=== PATIENT | female | born 1980 | race African-American/Black ===

== ENCOUNTER → 2019-09-05 10:32 | Outpatient (CLI) | payer MEDICARE, MEDICAID, SELFPAY ==
--- NOTE | ~2019-09-05 | XR_ITS ---
EXAMINATION: XR chest 2V EXAM DATE: 09/05/2019 10:53 INDICATION: Cough for 2 months. TECHNIQUE: Frontal and lateral projections of the chest obtained and reviewed. There is no prior ewelina dy for comparison. FINDINGS: The lungs are clear. There are no pleural effusions. The cardiomediastinal silhouette is within normal limits. There is no pneumothorax suspected. The bones and soft tissues are unremarkab le. IMPRESSION: No acute cardiopulmonary findings. Reviewed, dictated and finalized at location B. O SPECIALIST
== END ==
PROVIDERS: PCP Emergency Medicine; Visit Provider Emergency Medicine
DX: R05 Cough (principal)
CPT/HCPCS: 71046

== ENCOUNTER → 2019-11-23 14:44 | Outpatient (CLI) | payer MEDICARE, MEDICAID, SELFPAY ==
--- NOTE | ~2019-11-23 | XR_ITS ---
EXAMINATION: XR chest 2V DATE: 11/23/2019 14:58 INDICATION: Cough TECHNIQUE: PA and lateral views of the chest are obtained. COMPARISON: None available FINDINGS: The lungs are free of acute opacities. There is no pleural effusion or pneumothorax. The ca rdiomediastinal silhouette is normal. The visualized bones and soft tissues are unremarkable. IMPRESSION: 1. No acute cardiopulmonary abnormality. Reviewed, dictated and finalized at location A.
== END ==
PROVIDERS: PCP Emergency Medicine; Visit Provider Emergency Medicine
DX: R05 Cough (principal)
CPT/HCPCS: 71046

== ENCOUNTER → 2019-12-28 11:07 | Outpatient (CLI) | payer MEDICARE, MEDICAID, SELFPAY ==
--- NOTE | ~2019-12-28 | XR_ITS ---
XR chest 2V DATE: 12/28/2019 11:33 INDICATION: Shortness of breath. Exacerbation of asthma. Nonsmoker. TECHNIQUE: 2 views COMPARISON: 11/23/2019 2 view chest FINDINGS: Normal heart size. No hilar or mediastinal enlargement. The lungs are normally inflated. No pulmonary infiltrate or consolidation, pleural effusion or pulmonary vascular congestion or pneumoth orax. There is degenerative spurring and minimal scoliosis of the thoracic spine. IMPRESSION: No active cardiopulmonary disease Reviewed, dictated and finalized at location A.
== END ==
PROVIDERS: PCP Emergency Medicine; Visit Provider Emergency Medicine
DX: J45.901 Unspecified asthma with (acute) exacerbation (principal)
CPT/HCPCS: 71046

== ENCOUNTER 2020-04-17 12:00 | Emergency (ER) | payer MEDICARE, MEDICAID, SELFPAY ==
[2020-04-17 12:41] VITALS: BP 108/88; PULSE 104; RESP 16; TEMP 37.1; O2SAT 98
--- NOTE | 2020-04-17 13:05 | ED.URI ---
HPI - URI/Sore Throat General Chief Complaint: Upper Respiratory Infection Stated Complaint: SOB/DIFFICULTY BREATHING Time Seen by Provider: 04/17/20 13:00 Source: patient and RN notes reviewed Mode of arrival: ambulatory Limitations: no limitations History of Present Illness HPI Narrative: 39-year-old female presents with concern for cough, shortness of breath, wheezing. Reports symptoms started 2 days ago. Reports sore throat, bilateral ear pain. Reports she has an albuterol inhaler, has not used it. Reports general malaise, has not taken her temperature. MD elicited complaint: cough Related Data Home Medications Medication Instructions Recorded Confirmed budesonide-formoterol [Symbicort] 2 puff INHALATION Q12H 04/17/20 04/17/20 glipizide 5 mg PO DAILY 04/17/20 04/17/20 lisinopril 5 mg PO DAILY 04/17/20 04/17/20 metformin 500 mg PO BID 04/17/20 04/17/20 Allergies Allergy/AdvReac Type Severity Reaction Status Date / Time No Known Allergies Allergy Verified 04/17/20 12:58 Review of Systems Review of Systems: Narrative: CONSTITUTIONAL: Denies malaise, chills, sweats, or fever. EYES: Denies visual changes, redness, or discharge. ENT: Reports rhinorrhea, congestion, otalgia or sore throat. CARDIOVASCULAR: Denies chest pain, palpitations, or edema. RESPIRATORY: Reports cough, dyspnea. GASTROINTESTINAL: Denies abdominal pain, nausea, vomiting, diarrhea, bloody, or mucous stools. MUSCULOSKELETAL: Denies myalgia. NEUROLOGIC: Denies headache. All systems reviewed & are unremarkable except as noted in HPI and below PMFSH Social History Social History Smoking status: Never smoker Alcohol intake: current Comments At time of signature, agree with nursing past medical, surgical, social and family history. There is no relevant family history pertinent to the presenting complaint Exam Narrative: Exam Narrative: GENERAL: Well-appearing, well-nourished, and in no acute distress. HEAD: Normocephalic EYES: PERRLA, conjunctivae clear ENT: Nares clear, turbinates edematous and erythematous, clear discharge. Mucous membranes moist. TM pearly carpio with dull light reflex bilaterally; no tragal tenderness. Oropharynx not erythematous without lesions. Tonsils not enlarged and without exudate, no drooling, no hoarseness, no trismus, uvula midline. NECK: Supple. No lymphadenopathy CHEST: Scattered inspiratory and expiratory wheeze. Breath sounds equal. No rhonchi, rales, or stridor. No respiratory distress, speaks in full sentences. HEART: Regular rate and rhythm. No murmur heard. SKIN: Warm, dry, no rash. NEURO: Alert and oriented x3. PSYCH: Normal mood and affect Course Course Emergency Course: Patient is aware of diagnosis, understands and agrees to treatment plan. Anticipatory guidance given. Patient agrees to follow-up as directed and is aware of reasons to seek care at the emergency department. Portions of this record may have been created with voice recognition software Vital Signs Vital signs: Vital Signs Temperature 98.7 F 04/17/20 12:41 Pulse Rate 104 H 04/17/20 12:41 Respiratory Rate 16 04/17/20 12:41 Blood Pressure 108/88 04/17/20 12:41 Pulse Oximetry 98 04/17/20 12:41 Temperature 98.7 F 04/17/20 12:41 Pulse Rate 104 H 04/17/20 12:41 Respiratory Rate 16 04/17/20 12:41 Blood Pressure 108/88 04/17/20 12:41 Pulse Oximetry 98 04/17/20 12:41 Reviewed. MDM - URI/Sore Throat MDM Narrative Medical decision making narrative: Differential diagnosis considered: Yan virus, strep pharyngitis, allergic rhinitis, upper respiratory tract infection, sinusitis, rhinosinusitis, nasopharyngitis. viral pharyngitis, otitis media, otitis externa, pneumonia, bronchitis, viral cough syndrome, viral syndrome, and influenza. Exam findings show no acute concerns or changes; patient is non-toxic appearing and is in no distress. Patient is appropriate for outpatient treatment and follow-up. Crit
== END 2020-04-17 13:27 | disposition home or self-care (01) ==
PROVIDERS: Emergency Provider Nurse Practitioner; PCP Emergency Medicine
DX: R06.9 Unspecified abnormalities of breathing (principal); R05 Cough; R06.2 Wheezing; Z20.828 Contact with and (suspected) exposure to other viral communicable diseases; E11.9 Type 2 diabetes mellitus without complications
CPT/HCPCS: 99213; G0463

== ENCOUNTER 2020-06-04 19:47 | Emergency (ER) | payer MEDICARE, MEDICAID, SELFPAY ==
[2020-06-04 19:57] VITALS: BP 107/74; PULSE 167; RESP 20; TEMP 37.2; O2SAT 95
[2020-06-04 20:04] VITALS: PULSE 138; RESP 20; O2SAT 95
--- NOTE | 2020-06-04 20:04 | ED.SOB ---
HPI - SOB/Dyspnea General Chief Complaint: Shortness of Breath/Dyspnea Stated Complaint: Short of Breath Source: patient and RN notes reviewed Limitations: no limitations History of Present Illness HPI Narrative: The patient- a non-smoker/nondrinker with RAD, HTN. AODM- presents with cough. Patient presents on this rainy night with a day long history of cough and shortness of breath with wheezing. No fever, loss of taste or smell, CP, sputum changes, N/V/D; symptoms are moderate unimproved with her albuterol. She has been [financially?] noncompliant/out of some meds like symbicort; August was last hospitalization, and steroid use. Last documented updraft and visit was in late summer; Vital signs remarkable for sat 95, pulse 167 while coughing. Patient advised that nebulizer will be given at doorway, outdoors for infection control purposes- and she agrees. Related Data Home Medications Medication Instructions Recorded Confirmed budesonide-formoterol [Symbicort] 2 puff INHALATION Q12H 04/17/20 06/04/20 glipizide 5 mg PO DAILY 04/17/20 06/04/20 lisinopril 5 mg PO DAILY 04/17/20 06/04/20 metformin 500 mg PO BID 04/17/20 06/04/20 albuterol sulfate 2 inh INHALATION DIRECTED 06/04/20 06/04/20 fluticasone propionate 50 mcg INTRANASAL DIRECTED 06/04/20 06/04/20 omeprazole 20 mg PO DAILY 06/04/20 06/04/20 Allergies Allergy/AdvReac Type Severity Reaction Status Date / Time No Known Allergies Allergy Verified 06/04/20 19:48 Review of Systems Review of Systems: Narrative: General/Constitutional: No weight loss,fever Eyes: N0: Redness,discharge Ears/Nose/Throat: No: Epistaxis,ear discharge Respiratory: Denies: Hemoptysis Gastrointestinal: No Vomiting, Bleeding-rectal Skin: No Lumps, eruption Neurologic: No Focal Weakness,Sz Hematologic: Denies: Petechiae/Purpura Psychiatric: No: Suicida ideationl All Other Systems: Reviewed and Negative [facility] Social History Social History Smoking status: Never smoker Alcohol intake: current Comments At time of signature, agree with nursing past medical, surgical, social and family history. There is no relevant family history pertinent to the presenting complaint Exam Narrative: Exam Narrative: General Appearance: Well nourished , coughing EYE: PERRLA, Conjunctiva clear Ears: External ear normal Nose: Normal nose Mouth/Throat: Normal appearing, Normal lips Neck: Supple Respiratory: Airway patent, bilateral wheezing Cardiovascular: RRR, tachy Musculoskeletal: Full ROM Skin: Warm, Dry Neurological: A&O x3, CN II-X intact Psychiatric: Normal mood, Normal affect Course Course Emergency Course: Definitely improved after single treatment including heart rate, saturation, work of breathing Vital Signs Vital signs: Vital Signs Temperature 99.0 F 06/04/20 19:57 Pulse Rate 167 H 06/04/20 19:57 Respiratory Rate 20 06/04/20 19:57 Blood Pressure 107/74 06/04/20 19:57 Pulse Oximetry 95 06/04/20 19:57 Temperature 99.0 F 06/04/20 19:57 Pulse Rate 107 H 06/04/20 20:35 Respiratory Rate 21 H 06/04/20 20:35 Blood Pressure 107/74 06/04/20 19:57 Pulse Oximetry 97 06/04/20 20:35 Discharge Plan Discharge Clinical Impression: Asthma with exacerbation Qualifiers: Asthma severity: moderate Asthma persistence: unspecified Qualified Code(s): J45.901 - Unspecified asthma with (acute) exacerbation Patient Disposition: Home, Self-Care Condition: Improved Instructions: Antibiotic Form, Asthma (ED) Prescriptions: New albuterol sulfate 2.5 mg /3 mL (0.083 %) solution for nebulization 2.5 mg inhalation Q4H PRN (Reason: shortness of breath or wheezing) Qty: 15 RF: 0 albuterol sulfate [Ventolin HFA] 90 mcg/actuation HFA aerosol inhaler 2 puff INHALATION QID PRN (Reason: shortness of breath or wheezing) Qty: 8.5 RF: 1 Flovent HFA 220 mcg/actuation HFA aerosol inhaler 1 puff inhalation Q12H Qty: 12 RF: 3 azithro
[2020-06-04] MEDS: IPRATROPIUM BR 0.02% INH SOLN 0.5 MG/2.5 ML VIAL INHALATION (20:05)
[2020-06-04] MEDS: ALBUTEROL SULFATE NEB 2.5 MG/0.5 ML INH INHALATION (20:05)
[2020-06-04 20:30] VITALS: PULSE 109; RESP 28; O2SAT 96
[2020-06-04 20:35] VITALS: PULSE 107; RESP 21; O2SAT 97
--- NOTE | 2020-06-04 20:51 | PC.NURSE ---
pt only had one nebulizer treatment, but documentation twice since lungs improved.
== END 2020-06-04 20:55 | disposition home or self-care (01) ==
PROVIDERS: Emergency Provider Emergency Medicine; PCP Emergency Medicine
DX: J45.901 Unspecified asthma with (acute) exacerbation (principal); I10 Essential (primary) hypertension; K21.9 Gastro-esophageal reflux disease without esophagitis; E11.9 Type 2 diabetes mellitus without complications
CPT/HCPCS: 94640; 96372; 99213; G0463; J1100

== ENCOUNTER 2020-06-05 11:33 | Outpatient (NON) | payer MEDICARE, MEDICAID, SELFPAY ==
[2020-06-05 23:36] LABS: SARS-CoV-2 RNA PCR Negative
== END 2020-06-05 11:34 ==
LOC: ANHCOVIDDT 11:35
PROVIDERS: PCP Emergency Medicine; Visit Provider Emergency Medicine
DX: Z20.828 Contact with and (suspected) exposure to other viral communicable diseases (principal); J45.901 Unspecified asthma with (acute) exacerbation
CPT/HCPCS: 87635; C9803; U0003

== ENCOUNTER → 2020-10-15 00:37 | Outpatient (CLI) | payer MEDICARE, MEDICAID, SELFPAY ==
[2020-10-15 18:02] LABS: SARS-CoV-2 RNA PCR Negative
== END ==
PROVIDERS: PCP Emergency Medicine; Visit Provider Internal Medicine Critical Care Medicine
DX: Z01.812 Encounter for preprocedural laboratory examination (principal); Z20.822 Contact with and (suspected) exposure to COVID-19
CPT/HCPCS: C9803; U0003; U0005

== ENCOUNTER 2020-10-17 09:00 | Outpatient (CLI) | payer MEDICARE, MEDICAID, SELFPAY ==
--- NOTE | 2020-11-05 14:10 | WPDSLEEPSTUD ---
Sleep Study Ordering Provider: Brian Sarkar MD; gis software developer is Dr. Rocio Landa [facility] Interpreting Physician: Koki Drew MD Sleep Study Type: CPAP Titration Height: 1.5 m Weight: 77.111 kg Body Mass Index: 34.3 Neck Circumference (inches): 14.5 Marlin: 12 Reason for Sleep Study Home sleep test using WatchPat September 20, 2020 showing moderate obstructive sleep apnea AHI 15.7, lowest saturation 85% now here for a CPAP titration Sleep History Yasmin Appiah is a 40 year old female with constant trouble sleeping when she has a cold. She does not wake up gasping for breath at night, does not have breathing problems at night observed by others, does not sweat excessively at night or notice her heart pounding or beating irregularly night. She rarely falls asleep during the day, never involuntarily, never while driving. She does not have loss of muscle tone with strong emotion. She rarely has daytime difficulties due to excessive sleepiness. She does not feel paralyzed on waking or falling asleep and does not have vivid dreamlike scenes upon awakening or falling asleep. She rarely feels afraid to go to sleep. She occasionally has nightmares. She does not remember her dreams. She does not have racing thoughts, feelings of sadness, depression, anxiety. She does not have muscular tension or notice parts of her body jerking. She does not kick at night. She does not have crawling or aching feelings in her legs. She does not have morning jaw pain. Her normal bedtime is not given, although she indicates that she goes to bed late. It does not take long for her to fall asleep. She does wake multiple times throughout the night to go urinate. When awake, she stays awake for about an hour. She wakes in the morning between 7:00 a.m. and 8:00 a.m.. She is not sure how many hours of sleep she gets at night. [facility] Past Medical History Medical History (Updated 11/05/20 @ 14:25 by Koki Drew MD) COPD (chronic obstructive pulmonary disease) Diabetes mellitus GERD (gastroesophageal reflux disease) Obstructive sleep apnea Palpitations Snoring Surgical History Surgical History (Updated 11/05/20 @ 14:23 by Koki Drew MD) Status post appendectomy 2001 Family History Family History (Updated 11/05/20 @ 14:24 by Koki Drew MD) Other Cancer Diabetes mellitus Social History Social History Smoking status: Never smoker Alcohol intake: current Medications Home Medications Medication Instructions Recorded Confirmed Type budesonide-formoterol [Symbicort] 2 puff INHALATION Q12H 04/17/20 06/04/20 History glipizide 5 mg PO DAILY 04/17/20 06/04/20 History lisinopril 5 mg PO DAILY 04/17/20 06/04/20 History metformin 500 mg PO BID 04/17/20 06/04/20 History albuterol sulfate 2 inh INHALATION DIRECTED 06/04/20 06/04/20 History albuterol sulfate 2.5 mg INHALATION Q4H PRN #15 ml 06/04/20 Rx albuterol sulfate [Ventolin HFA] 2 puff INHALATION QID PRN #8.5 gm 06/04/20 Rx azithromycin See Rx Instructions .ROUTE 06/04/20 Rx .COMPLEX #6 tablet dexamethasone [Decadron] 6 mg PO DAILY #3 tablet 06/04/20 Rx fluticasone propionate 50 mcg INTRANASAL DIRECTED 06/04/20 06/04/20 History fluticasone propionate [Flovent 1 puff INHALATION Q12H #12 g 06/04/20 Rx HFA] omeprazole 20 mg PO DAILY 06/04/20 06/04/20 History Sleep Procedure This test was performed using the [employer] multiple channel system including EOG, EEG, submental EMG, EKG, nasal and oral airflow using thermistors and nasal pressure sensors, chest and abdominal belts for body position data, and pulse oximetry. Video monitoring was also performed. The study was scored using CMS guidelines. The patient was started on CPAP a small AIrfit F20 full face mask and heated humidifier. CPAP was gradually increased for snores, with a final pressure of 11 cm water pressure with 2 cm of EPR. At this setting, the patient
[2020-11-05 14:31] VITALS: BMI 34.3
== END 2020-10-17 09:01 | disposition home or self-care (01) ==
LOC: ANHCSM 09:01
PROVIDERS: PCP Emergency Medicine; Visit Provider Emergency Medicine
DX: G47.33 Obstructive sleep apnea (adult) (pediatric) (principal); J44.9 Chronic obstructive pulmonary disease, unspecified; E11.9 Type 2 diabetes mellitus without complications; K21.9 Gastro-esophageal reflux disease without esophagitis; Z79.899 Other long term (current) drug therapy
CPT/HCPCS: 95811

== ENCOUNTER 2021-01-14 14:19 | Emergency (ER) | payer MEDICARE, MEDICAID, SELFPAY ==
[2021-01-14 14:30] VITALS: BP 113/93; PULSE 134; RESP 16; TEMP 37.7; O2SAT 94
[2021-01-14] MEDS: IPRATROPIUM BR 0.02% INH SOLN 0.5 MG/2.5 ML VIAL INHALATION (15:12)
[2021-01-14] MEDS: predniSONE 20 MG TABLET 60 MG PO (15:12)
[2021-01-14] MEDS: LEVALBUTEROL NEB 1.25 MG/3 ML INHALATION (15:12)
[2021-01-14 15:45] VITALS: PULSE 128; RESP 24; O2SAT 95
--- NOTE | 2021-01-14 16:02 | PC.NURSE ---
Pt ambulated up and down hallway. Sats maintained at 95% with HR 120's. No SOB noted with ambulation.
--- NOTE | 2021-01-14 16:18 | ED.GENADULT ---
HPI - General Adult General Chief complaint: Upper Respiratory Infection Stated complaint: Sore Throat,Congestion Source: patient and RN notes reviewed Limitations: no limitations History of Present Illness HPI narrative: The obese, unvaccinated patient-- who is a non-smoker/nondrinker with RAD-- presents with cough. Patient states she has a shorter 1 day history of cough. Incidentally she comments that she is pending a nasal polyp surgery this midweek, and has been taking prednisone for a week tapered to 10 mg today [last steroids , CXR were about last year, as she was hospitalized] . She reports 1 day history of fever 102, cough, congestion, ear fullness, and slight scratchy throat. No loss of taste/smell, CP, nausea/vomiting, calf pain/ edema; discussed plan to provide nebulizer tx [she has not used], steroid burst, and antibiotics. Patient to inform her doctors of visit and treatment, and return if worsens. Related Data Home Medications Medication Instructions Recorded Confirmed glipizide 5 mg PO DAILY 04/17/20 01/14/21 docusate sodium 100 mg PO BID 01/14/21 01/14/21 [id number]-yrijkaxu 1 inh INHALATION DAILY 01/14/21 01/14/21 [Trelegy Ellipta] metformin 850 mg PO BID 01/14/21 01/14/21 montelukast 10 mg PO DAILY 01/14/21 01/14/21 pantoprazole 40 mg PO DAILY 01/14/21 01/14/21 prednisone 10 mg PO .RX INSTRUCTIONS 01/14/21 01/14/21 Allergies Allergy/AdvReac Type Severity Reaction Status Date / Time No Known Allergies Allergy Verified 01/14/21 14:42 Review of Systems Review of Systems: Narrative: General/Constitutional: No weight loss,REPOrtS fever Eyes: N0: Redness,discharge Ears/Nose/Throat: No: Epistaxis,ear discharge Respiratory: Denies: Hemoptysis Gastrointestinal: No Vomiting, Bleeding-rectal Skin: No Lumps, eruption Neurologic: No Focal Weakness,Sz Hematologic: Denies: Petechiae/Purpura Psychiatric: No: Suicida ideationl All Other Systems: Reviewed and Negative [facility] Past Medical History Medical History (Updated 01/16/21 @ 19:11 by Catalino Weathers MD) COPD (chronic obstructive pulmonary disease) Diabetes mellitus GERD (gastroesophageal reflux disease) Obstructive sleep apnea Palpitations Snoring Surgical History Surgical History (Updated 11/05/20 @ 14:23 by Koki Drew MD) Status post appendectomy 2002 Family History Family History (Updated 11/05/20 @ 14:24 by Koki Drew MD) Other Cancer Diabetes mellitus Social History Social History Smoking status: Never smoker Alcohol intake: current Comments At time of signature, agree with nursing past medical, surgical, social and family history. There is no relevant family history pertinent to the presenting complaint Exam Narrative: Exam Narrative: General Appearance: Well appearing, Obese/ Well nourished EYE: PERRLA, Conjunctiva clear Ears: Auditory canal normal, TM normal Nose: Rhinorrhea, Mucousal erythema Mouth/Throat: MM moist, Uvula midline, Pharyngeal erythema Neck: Supple, No adenopathy Respiratory: Airway patent, No respiratory distress, diffuse decreased BS, rare scattered wheezing Cardiovascular: RRR tachy , No JVD Musculoskeletal: Non tender, Normal strength Skin: Warm, Dry Neurological: A&O x3, CN II-XII intact Psychiatric: Normal mood, Normal affect Course Vital Signs Vital signs: Vital Signs Temperature 99.8 F H 01/14/21 14:30 Pulse Rate 134 H 01/14/21 14:30 Respiratory Rate 16 01/14/21 14:30 Blood Pressure 113/93 H 01/14/21 14:30 Pulse Oximetry 94 01/14/21 14:30 Temperature 99.8 F H 01/14/21 14:30 Pulse Rate 128 H 01/14/21 15:45 Respiratory Rate 24 H 01/14/21 15:45 Blood Pressure 113/93 H 01/14/21 14:30 Pulse Oximetry 95 01/14/21 15:45 Medical Decision Making Vital Signs Vital Signs: Vital Signs Temperature 99.8 F H 01/14/21 14:30 Pulse Rate 134 H 01/14/21 14:30 Respiratory Rate 16 01/14/21 14:30 Blood P
== END 2021-01-14 16:26 | disposition home or self-care (01) ==
PROVIDERS: Emergency Provider Emergency Medicine; PCP Emergency Medicine
DX: J45.31 Mild persistent asthma with (acute) exacerbation (principal); Z20.822 Contact with and (suspected) exposure to COVID-19; J44.9 Chronic obstructive pulmonary disease, unspecified; E11.9 Type 2 diabetes mellitus without complications; K21.9 Gastro-esophageal reflux disease without esophagitis; G47.33 Obstructive sleep apnea (adult) (pediatric)
CPT/HCPCS: 87426; 94640; 99213; C9803; G0463; J7512

== ENCOUNTER → 2021-06-04 11:03 | Outpatient (CLI) | payer MEDICARE, MEDICAID, SELFPAY ==
--- NOTE | ~2021-06-04 | XR_ITS ---
EXAMINATION: XR lumbar spine 2-3V EXAM DATE: 06/04/2021 11:27 INDICATION: Low back pain. TECHNIQUE: Lumber spine frontal, lateral, lateral L5-S1 projections for interpretation. Comparison is made to prior examination from 05/29/2016. FINDINGS: Mild lower lumbar facet arthropathy. There are no acute fractures identified. Alignment ma intained. There are no bony erosions identified. Paraspinal soft tissue is unremarkable. Sacrum, sacr oiliac joints, sacral arcuate lines are intact. IMPRESSION: Mild facet arthropathy. Reviewed, dictated and finalized at location B. IMPRESSION: Mild facet arthropathy.
--- NOTE | ~2021-06-04 | XR_ITS ---
EXAMINATION: XR chest 2V EXAM DATE: 06/04/2021 11:27 INDICATION: Pt W Rt Lung infiltrate, Mid Back Pain. TECHNIQUE: Frontal and lateral projections of the chest obtained and reviewed. Comparison is made to prior examination from 12/28/2019. FINDINGS: The lungs are clear. There are no pleural effusions. The cardiomediastinal silhouette is within normal limits. There is no pneumothorax suspected. The bones and soft tissues are unremarkab le. IMPRESSION: No acute cardiopulmonary findings. Reviewed, dictated and finalized at location B.
--- NOTE | ~2021-06-04 | XR_ITS ---
EXAMINATION: XR thoracic spine 3V EXAM DATE: 06/04/2021 11:27 INDICATION: Mid back pain. TECHNIQUE: Frontal and lateral projections of the thoracic spine as well as lateral swimmers projecti on of the upper thoracic spine for interpretation. There is no prior study for comparison. FINDINGS: Vertebral body and disc heights are well-maintained. Small lower thoracic bridging endplate osteophyt es. Paraspinal soft tissue is unremarkable. There are no bony erosions identified. IMPRESSION: Small lower thoracic osteophytes. Reviewed, dictated and finalized at location B.
== END ==
PROVIDERS: PCP Emergency Medicine; Visit Provider Emergency Medicine
DX: M47.815 Spondylosis without myelopathy or radiculopathy, thoracolumbar region (principal); R91.8 Other nonspecific abnormal finding of lung field
CPT/HCPCS: 71046; 72072; 72100

== ENCOUNTER 2021-06-26 16:19 | Emergency (ER) | payer MEDICARE, MEDICAID, SELFPAY ==
--- NOTE | ~2021-06-26 | XR_ITS ---
EXAMINATION: XR chest 2V DATE: 06/26/2021 16:55 INDICATION: Dyspnea. TECHNIQUE: Frontal and lateral views of the chest were obtained. COMPARISON: Chest 2 views 06/04/2021 FINDINGS: The chest demonstrates clear lungs without pneumonia, pleural effusion, or pneumothorax. Th e heart size is normal. IMPRESSION: 1. No acute cardiopulmonary disease. Reviewed, dictated and finalized at location A. ILE DESIGNER
[2021-06-26 16:20] VITALS: BP 110/75; PULSE 120; PULSE 142; RESP 30; RESP 32; TEMP 36.3; O2SAT 90
[2021-06-26] MEDS: IPRATROPIUM BR 0.02% INH SOLN 0.5 MG/2.5 ML VIAL INHALATION ×2 (16:20→17:25)
[2021-06-26] MEDS: ALBUTEROL SULFATE NEB 2.5 MG/3 ML INH INHALATION ×2 (16:20→17:24)
--- NOTE | 2021-06-26 16:24 | ED.ASTHMA ---
HPI - Asthma General Chief Complaint: Shortness of Breath/Dyspnea Stated Complaint: sob Time Seen by Provider: 06/26/21 16:24 Source: patient Mode of arrival: ambulatory Limitations: no limitations History of Present Illness HPI Narrative: Yasmin Appiah is a 40 yo female with a hx of asthma, diabetes, comes to [facility] with asthma exacerbation. She was seen the last 2 nights in [place] and then in [facility] she was prescribed prednisone but she did not pick it up today. She arrived at clinic she had O2 sat of 90% and respiratory rate of 30, she is currently receiving a DuoNeb Related Data Home Medications Medication Instructions Recorded Confirmed glipizide 5 mg PO DAILY 04/17/20 06/26/21 [id number]-jqusavrer-mcttfdib 1 inh INHALATION DAILY 01/14/21 06/26/21 [Trelegy Ellipta] metformin 850 mg PO BID 01/14/21 06/26/21 montelukast 10 mg PO DAILY 01/14/21 06/26/21 pantoprazole 40 mg PO DAILY 01/14/21 06/26/21 amlodipine 5 mg PO DAILY 06/26/21 06/26/21 ferrous sulfate [FeroSul] 325 mg PO DAILY 06/26/21 06/26/21 sennosides-docusate sodium PO 06/26/21 [Stimulant Laxative Plus] Allergies Allergy/AdvReac Type Severity Reaction Status Date / Time No Known Allergies Allergy Verified 06/26/21 17:12 Review of Systems Review of Systems: CONSTITUTIONAL: Denies fever, chills, sweats. EYES: Denies visual changes, redness, discharge. ENT: Denies rhinorrhea, congestion, sore throat, otalgia. CARDIOVASCULAR: Denies chest pain, palpitations, edema. RESPIRATORY: has dyspnea, wheezing, cough GASTROINTESTINAL: Denies abdominal pain, nausea, vomiting, diarrhea. GENITOURINARY: Denies dysuria, hematuria, abnormal discharge SKIN: Denies rash or itching. NEUROLOGIC: Denies numbness, or focal weakness. PSYCHIATRIC: Denies anxiety or depression. [facility] Past Medical History Medical History COPD (chronic obstructive pulmonary disease) Diabetes mellitus GERD (gastroesophageal reflux disease) Obstructive sleep apnea Palpitations Snoring Surgical History Surgical History Status post appendectomy 2002 Family History Family History Other Cancer Diabetes mellitus Social History Social History Smoking status: Never smoker Alcohol intake: current Comments At time of signature, I agree with nursing past medical, surgical, social and family history. There is no relevant family history pertinent to the presenting complaint. Exam Narrative: GENERAL: This is a well-nourished, well-developed patient, in mild distress. HEAD: normocephalic, atraumatic. EYES: Sclera clear/white. Vision is grossly intact. EARS: External ears normal, . Hearing grossly intact. NOSE: External nose normal without nasal discharge, nares without redness, no rhinorrhea. THROAT: Mucous membranes moist, NECK: Neck supple, non-tender CARDIOVASCULAR: Regular rate and rhythm without murmurs, gallops, or rubs. RESPIRATORY: Tight to auscultation. Breath sounds equal bilaterally but has little air movement. Minimal rhonchi. GASTROINTESTINAL: Abdomen soft, non-tender, SKIN: warm, intact with no suspicious lesions or rash, good texture and turgor. NEURO: awake, alert, and oriented to person, place and time. There were no obvious focal neurologic abnormalities. Steady gait EXTREMITIES: Normal range of motion. BACK: Nontender without deformity Course Course Emergency Course: Patient arrived to [facility] with O2 sats of 90 her respiratory rate of 30 is a recurrent patient here with COPD exacerbation-his third visit in 3 days for this patient for asthma exacerbation Started on DuoNeb treatments-after first treatment still wheezing sounded tight, 80 mg of prednisone given, second DuoNeb started Chest x-tracy was
[2021-06-26] MEDS: predniSONE 20 MG TABLET PO (16:40)
[2021-06-26] MEDS: predniSONE 20 MG TABLET 60 MG PO (16:40)
[2021-06-26 16:50] VITALS: PULSE 117; RESP 32; O2SAT 90
[2021-06-26 17:20] VITALS: PULSE 121; RESP 31; O2SAT 90
[2021-06-26 17:55] VITALS: PULSE 119; RESP 32; O2SAT 91
[2021-06-26 17:59] VITALS: PULSE 103; RESP 26; O2SAT 92
== END 2021-06-26 18:02 | disposition short-term general hospital (02) ==
LOC: EXPCOLL 16:21
PROVIDERS: Emergency Provider Nurse Practitioner; PCP Emergency Medicine
DX: R06.00 Dyspnea, unspecified (principal); J44.1 Chronic obstructive pulmonary disease with (acute) exacerbation; E11.9 Type 2 diabetes mellitus without complications; G47.33 Obstructive sleep apnea (adult) (pediatric)
CPT/HCPCS: 71046; 99215; G0463; J7512

== ENCOUNTER 2021-06-26 18:21 | Emergency (ER) | payer MEDICARE, MEDICAID, SELFPAY ==
[2021-06-26 18:23] VITALS: BP 134/82; PULSE 92; RESP 24; TEMP 36.5; O2SAT 97
--- NOTE | 2021-06-26 18:46 | ECG_ITS ---
Measurements Intervals [place] Rate: 81 P: 54 MO: 156 QRS: 42 QRSD: 78 T: 25 QT: 323 QTc: 376 Interpretive Statements SINUS RHYTHM WITH MARKED SINUS ARRHYTHMIA BORDERLINE ECG Electronically Signed On 06-26-2021 19:54:46 CLINICAL LABORATORY MEDICAL DIRECTOR by Atilio Arana D.O.
[2021-06-26] MEDS: methylPREDNISolone SOD SUCC 125 MG VIAL IV PUSH (18:54)
[2021-06-26] MEDS: SODIUM CHLORIDE 0.9% IV 1,000 ML 150 ML IV CONT (18:54)
[2021-06-26] MEDS: IPRATROPIUM BR 0.02% INH SOLN 0.5 MG/2.5 ML VIAL 1 MG INHALATION (18:59)
[2021-06-26] MEDS: ALBUTEROL SULFATE NEB 2.5 MG/0.5 ML INH 10 MG INHALATION (18:59)
[2021-06-26 19:00] VITALS: PULSE 103; RESP 20
[2021-06-26 19:09] LABS: Basophils Percent Auto 0.1 % (0.2-1.2); Eosinophils Percent Auto 0.2 % (0-4.4); Hematocrit 38.2 % (37.0-47.0); Hemoglobin 11.9 g/dL (12.0-15.0); Immature Granulocyte Absolute 0.04 K/mm3 (0.00-0.031); Immature Granulocyte Percent A 0.3 % (0-0.5); Lymphocytes Absolute Auto 0.93 K/mm3 (0.9-3.2); Lymphocytes Percent Auto 6.7 % (18.3-44.2); Mean Corpuscular HGB Conc 31.2 g/dl (32-36); Mean Corpuscular Hemoglobin 24.4 pg (26-34); Mean Corpuscular Volume 78.4 fl (80-100); Mean Platelet Volume 10.1 fl (7.4-10.4); Monocytes Absolute Auto 0.7 K/mm3 (0.1-0.6); Monocytes Percent Auto 4.9 % (2.6-8.5); Neutrophils Absolute Auto 12.2 K/mm3 (1.3-6.7); Neutrophils Percent Auto 87.8 % (45.5-73.1); Platelet Count Result 419 k/mm3 (150-375); Red Blood Count 4.87 M/mm3 (4.2-5.4); White Blood Count 13.9 K/mm3 (4.5-10.0)
[2021-06-26 19:11] LABS: Add Urine Microscopic? YES; Appearance Urine Cloudy (Clear); Bacteria Urine Trace /hpf; Bilirubin Urine Negative (Negative); Blood Urine Negative (Negative); Color Urine Yellow (Yellow); Glucose Urine UA 3+ mg/dL (Negative); Ketones Urine Negative (Negative); Leukocyte Esterase Ur Negative LEU/UL (Negative); Mucus Urine Rare /lpf; Nitrate Urine Negative (Negative); Protein Urine 2+ mg/dL (Negative); Squamous Epithelial Cell Urine Rare /hpf (Few); Urobilinogen Urine Negative mg/dL (<2.0)
[2021-06-26 19:21] LABS: Anion Gap 14 mmol/L (8-16); Blood Urea Nitrogen 8 mg/dL (7-17); Calcium 10.5 mg/dL (8.4-10.2); Carbon Dioxide 19 mmol/L (22-30); Chloride 103 mmol/L (98-107); Estimated Glomerular Filt Rate > 60; Glucose 199 mg/dL (65-110); Potassium 4.2 mmol/L (3.4-5.0); Sodium 136 mmol/L (137-145)
[2021-06-26 19:22] LABS: Specific Grav Ur 1.031 (1.001-1.035)
[2021-06-26 19:30] LABS: NT Pro B Type Natriuretic Pept 52 pg/mL (5-100)
[2021-06-26 20:13] VITALS: PULSE 122; RESP 20
--- NOTE | 2021-06-26 20:27 | ED.SOB ---
HPI - SOB/Dyspnea General Chief Complaint: Shortness of Breath/Dyspnea Stated Complaint: diff breathing Time Seen by Provider: 06/26/21 18:27 Source: patient Mode of arrival: ambulatory Limitations: no limitations History of Present Illness HPI Narrative: 40-year-old with a history of hypertension, diabetes, COPD here with complaints of shortness of breath for past few days. She states that she went to urgent care earlier and was later referred to the ER. She presently denies any fever or chills. Complains of cough which is nonproductive. She has been using her inhalers relieved at times. MD elicited complaint: shortness of breath and cough Pertinent past history: COPD Timing: intermittent Severity: moderate Exacerbating factors: nothing Relieving factors: bronchodilators Known history of: COPD Associated symptoms: denies other symptoms Related Data Home Medications Medication Instructions Recorded Confirmed glipizide 5 mg PO DAILY 04/17/20 06/26/21 vnzqjujcxab-[id number]-miorbnbi 1 inh INHALATION DAILY 01/14/21 06/26/21 [Trelegy Ellipta] metformin 850 mg PO BID 01/14/21 06/26/21 montelukast 10 mg PO DAILY 01/14/21 06/26/21 pantoprazole 40 mg PO DAILY 01/14/21 06/26/21 amlodipine 5 mg PO DAILY 06/26/21 06/26/21 ferrous sulfate [FeroSul] 325 mg PO DAILY 06/26/21 06/26/21 sennosides-docusate sodium PO 06/26/21 [Stimulant Laxative Plus] Allergies Allergy/AdvReac Type Severity Reaction Status Date / Time No Known Allergies Allergy Verified 06/26/21 17:12 Review of Systems Review of Systems: All systems reviewed & are unremarkable except as noted in HPI and below Constitutional: Constitutional: Reports no additional constitutional complaints Eyes: Eyes: Reports no additional eye complaints ENT: Reports system reviewed and no additional complaints, except as documented Cardiovascular: Cardiovascular: Reports no additional cardiovascular complaints Respiratory: Respiratory: Reports as per HPI Gastrointestinal: Gastrointestinal: Reports no additional gastrointestinal complaints Musculoskeletal: Musculoskeletal: Reports no additional musculoskeletal complaints Integumentary/Breasts: Skin/Breast: Reports system reviewed and no additional complaints, except as docu Neurologic: Reports system reviewed and no additional complaints, except as documented Endocrine: Endocrine: Reports no additional endocrine complaints PMFSH Past Medical History Medical History COPD (chronic obstructive pulmonary disease) Diabetes mellitus GERD (gastroesophageal reflux disease) Obstructive sleep apnea Palpitations Snoring Surgical History Surgical History Status post appendectomy 2001 Family History Family History Other Cancer Diabetes mellitus Social History Social History Smoking status: Never smoker Alcohol intake: current Exam Narrative: GENERAL: Well-appearing, well-nourished, and in no acute distress. HEAD: Normocephalic, atraumatic. EYES: PERRLA and EOMI. NECK: Supple. CHEST: Bilateral wheeze . HEART: Regular rate and rhythm. No murmur heard. Normal peripheral pulses. ABDOMEN: Soft, nontender, nondistended, normal active bowel sounds. EXTREMITIES: Normal range of motion. No edema. SKIN: Warm, dry, no rash. NEURO: No focal deficits. Alert and oriented x3. PSYCH: Normal mood and affect. Course Course Emergency Course: Patient did get 1 hour-long treatment and feeling much better. Informed her and her about her lab work and x-ray results. Recommended to follow-up with septic pump truck driver as scheduled chest tomorrow meanwhile continue home medications. He also mentioned that at times in the nighttime her SPO2 drops down to 87%. Patient did have sleep studies in the past but she
[2021-06-26 20:58] VITALS: BP 123/78; PULSE 105; RESP 18; O2SAT 98
--- NOTE | 2021-07-09 08:27 | PC.NURSE ---
LATE ENTRY This note is being entered to document information to the patient's record. The following information was omitted on [06/26/21], by [Natty Ross RN]. Iv Fluid NS stop time 2049
== END 2021-06-26 20:59 | disposition home or self-care (01) ==
PROVIDERS: Emergency Provider Family Medicine; PCP Emergency Medicine
DX: J44.1 Chronic obstructive pulmonary disease with (acute) exacerbation (principal); I10 Essential (primary) hypertension; E11.9 Type 2 diabetes mellitus without complications; K21.9 Gastro-esophageal reflux disease without esophagitis; G47.33 Obstructive sleep apnea (adult) (pediatric); R94.31 Abnormal electrocardiogram [ECG] [EKG]; Z79.84 Long term (current) use of oral hypoglycemic drugs
CPT/HCPCS: 36415; 71046; 80048; 81001; 83880; 85025; 93005; 94640; 96361; 96374; 99284; J2930; J7030; J7512

== ENCOUNTER 2021-09-05 16:24 | Outpatient (CLI) | payer MEDICARE, MEDICAID, SELFPAY ==
[2021-09-05 17:10] LABS: Basophils Percent Auto 0.3 % (0.2-1.2); Eosinophils Absolute Auto 0.2 K/mm3 (0-0.3); Eosinophils Percent Auto 1.3 % (0-4.4); Hematocrit 39.9 % (37.0-47.0); Hemoglobin 12.7 g/dL (12.0-15.0); Immature Granulocyte Absolute 0.04 K/mm3 (0.00-0.031); Immature Granulocyte Percent A 0.3 % (0-0.5); Lymphocytes Absolute Auto 2.68 K/mm3 (0.9-3.2); Lymphocytes Percent Auto 22.6 % (18.3-44.2); Mean Corpuscular HGB Conc 31.8 g/dl (32-36); Mean Corpuscular Hemoglobin 25.2 pg (26-34); Mean Corpuscular Volume 79.2 fl (80-100); Mean Platelet Volume 9.9 fl (7.4-10.4); Monocytes Absolute Auto 0.8 K/mm3 (0.1-0.6); Neutrophils Absolute Auto 8.1 K/mm3 (1.3-6.7); Neutrophils Percent Auto 68.5 % (45.5-73.1); Platelet Count Result 453 k/mm3 (150-375); Red Blood Count 5.04 M/mm3 (4.2-5.4); Red Cell Distribution Width 14.4 % (11.5-14.5); White Blood Count 11.9 K/mm3 (4.5-10.0)
[2021-09-05 17:15] LABS: Add Urine Microscopic? YES; Appearance Urine Cloudy (Clear); Bacteria Urine Trace /hpf; Bilirubin Urine Negative (Negative); Blood Urine Negative (Negative); Color Urine Amber (Yellow); Glucose Urine UA Negative (Negative); Ketones Urine Trace mg/dL (Negative); Leukocyte Esterase Ur Negative LEU/UL (NEGATIVE); Mucus Urine Heavy /lpf; Nitrate Urine Negative (Negative); Protein Urine 1+ mg/dL (Negative); Specific Grav Ur 1.027 (1.001-1.035); Squamous Epithelial Cell Urine Many /hpf (Few); Urobilinogen Urine Negative mg/dL (<2.0); WBC Urine 0-3 /hpf (0-3)
[2021-09-05 17:44] LABS: Albumin Level 4.6 g/dL (3.5-5.1); Anion Gap 13 mmol/L (8-16); Blood Urea Nitrogen 10 mg/dL (7-17); Calcium 9.6 mg/dL (8.4-10.2); Carbon Dioxide 27 mmol/L (22-30); Chloride 100 mmol/L (98-107); Estimated Glomerular Filt Rate > 60; Glucose 86 mg/dL (65-110); Potassium 3.4 mmol/L (3.4-5.0); Sodium 140 mmol/L (137-145)
[2021-09-05 18:15] LABS: Creatinine Urine > 346.5 mg/dL
[2021-09-05 18:54] LABS: Hemoglobin A1C 7.3 % (<5.7)
[2021-09-05 19:23] LABS: Total Protein Urine Random < 5 mg/dL
[2021-09-12 00:04] LABS: Vitamin D 1,25 (OH)2 Total 55 pg/mL (18-72); Vitamin D2 1,25 (OH)2 <8 pg/mL; Vitamin D3 1,25 (OH)2 55 pg/mL
== END 2021-09-05 16:25 | disposition home or self-care (01) ==
LOC: ANHLAB 16:34
PROVIDERS: PCP Emergency Medicine; Visit Provider Hospitalist
DX: N18.2 Chronic kidney disease, stage 2 (mild) (principal); E11.21 Type 2 diabetes mellitus with diabetic nephropathy; E55.9 Vitamin D deficiency, unspecified; I12.9 Hypertensive chronic kidney disease with stage 1 through stage 4 chronic kidney disease, or unspecified chronic kidney disease
CPT/HCPCS: 36415; 80069; 81001; 82570; 82652; 83036; 84156; 84550; 85025

== ENCOUNTER 2021-11-25 01:41 | Emergency (ER) | payer MEDICARE, MEDICAID, SELFPAY ==
[2021-11-25] VITALS (8 sets, daily range): BP systolic 95–115; BP diastolic 61–91; PULSE 75–133; RESP 19–24; TEMP 36.4; O2SAT 92–96
--- NOTE | ~2021-11-25 | CT_ITS ---
EXAMINATION: CTA chest PE protocol EXAM DATE: 11/25/2021 03:24 INDICATION: Difficulty breathing and Elevated d dimer . TECHNIQUE: Spiral CTA of the chest (pulmonary arteries) was performed with 100 cc Omnipaque 350 intr avenous contrast injection. Images were acquired during the pulmonary arterial phase. Coronal maxi mum intensity projection 3D-reconstructions were created by the technologist on dedicated workstation . Axial, coronal and sagittal reformatted images were reviewed. The dose-length product (DLP) for t his examination was 460.60 mGy-cm. The exposure was tailored according to patient size (auto mA exp osure control), and iterative reconstruction (ASIR) was used as additional dose reduction technique. There is no prior study for comparison. FINDINGS: Pulmonary arteries are well opacified and without intraluminal filling defects. No thora cic aortic dissection. Small amount of scattered subsegmental atelectasis. There are no pleural or pericardial effusions. Tracheobronchial tree is patent. There is no mediastinal, hilar or axillar y lymphadenopathy. There is no pneumothorax. Heart normal in size. No evidence of coronary kristen rial calcification. Small region right renal cortical scarring. There is thoracic spondylosis witho ut osteoblastic or osteolytic lesions identified. IMPRESSION: Small scattered subsegmental atelectasis. No pulmonary emboli suspected. Reviewed, dictated and finalized at location A. IMPRESSION: Small scattered subsegmental atelectasis. No pulmonary emboli suspe cted.
--- NOTE | 2021-11-25 02:02 | ECG_ITS ---
Measurements Intervals [place] Rate: 115 P: 48 SD: 160 QRS: 35 QRSD: 71 T: 52 QT: 434 QTc: 602 Interpretive Statements SINUS TACHYCARDIA NONSPECIFIC T-WAVE ABNORMALITY BORDERLINE ECG COMPARED TO ECG 06/26/2021 19:11:42 HEART RATE HAS INCREASED T-WAVE ABNORMALITY NOW PRESENT Electronically Signed On 11-25-2021 11:26:42 CDT by Allen Morelos M.D.
--- NOTE | 2021-11-25 02:09 | PC.NURSE ---
This RN attempted IV access x2, no success. 2nd rn to try
[2021-11-25 02:41] LABS: Basophils Percent Auto 0.4 % (0.2-1.2); Eosinophils Percent Auto 0.1 % (0-4.4); Hematocrit 33.4 % (37.0-47.0); Hemoglobin 10.5 g/dL (12.0-15.0); Immature Granulocyte Absolute 0.03 K/mm3 (0.00-0.031); Immature Granulocyte Percent A 0.3 % (0-0.5); Lymphocytes Absolute Auto 0.39 K/mm3 (0.9-3.2); Mean Corpuscular HGB Conc 31.4 g/dl (32-36); Mean Corpuscular Hemoglobin 25.2 pg (26-34); Mean Corpuscular Volume 80.3 fl (80-100); Mean Platelet Volume 9.9 fl (7.4-10.4); Monocytes Percent Auto 9.7 % (2.6-8.5); Neutrophils Absolute Auto 8.4 K/mm3 (1.3-6.7); Neutrophils Percent Auto 85.5 % (45.5-73.1); Platelet Count Result 368 k/mm3 (150-375); Red Blood Count 4.16 M/mm3 (4.2-5.4); Red Cell Distribution Width 13.8 % (11.5-14.5); White Blood Count 9.8 K/mm3 (4.5-10.0)
[2021-11-25 02:52] LABS: Alanine Aminotransferase 10 U/L (4-35); Albumin Level 4.3 g/dL (3.5-5.1); Alkaline Phosphatase 61 U/L (38-126); Anion Gap 10 mmol/L (8-16); Aspartate Amino Transferase 22 U/L (14-36); Bilirubin,Total 0.2 mg/dL (0.2-1.3); Blood Urea Nitrogen 14 mg/dL (7-17); Calcium 8.6 mg/dL (8.4-10.2); Carbon Dioxide 23 mmol/L (22-30); Chloride 105 mmol/L (98-107); Estimated Glomerular Filt Rate > 60; Glucose 166 mg/dL (65-110); Potassium 3.5 mmol/L (3.4-5.0); Sodium 138 mmol/L (137-145)
[2021-11-25 02:57] LABS: D Dimer 1.14 ug/mL (<0.48)
[2021-11-25 03:15] LABS: Influenza A QL RT-PCR Negative (Negative); Influenza B QL RT-PCR Negative (Negative); SARS-CoV-2 RNA PCR Positive
--- NOTE | 2021-11-25 03:37 | ED.GENADULT ---
HPI - General Adult General Chief complaint: Shortness of Breath/Dyspnea Stated complaint: shortness of breath, body aches Time Seen by Provider: 11/25/21 01:59 Source: patient History of Present Illness HPI narrative: 41-year-old female with history of COPD presented to the emergency department for evaluation of sore throat body aches cough and shortness of breath. Patient began developing symptoms on . Patient states that she went out with friends on Thursday and had worsening symptoms on Thursday. Patient reports he does have history of COPD but denies any prior history of asthma or smoking. Patient did not get the Covid vaccine. Related Data Home Medications Medication Instructions Recorded Confirmed glipizide 5 mg PO DAILY 04/17/20 06/26/21 [id number]-wgagnljtl-syetebxq 1 inh INHALATION DAILY 01/14/21 06/26/21 [Trelegy Ellipta] metformin 850 mg PO BID 01/14/21 06/26/21 montelukast 10 mg PO DAILY 01/14/21 06/26/21 pantoprazole 40 mg PO DAILY 01/14/21 06/26/21 amlodipine 5 mg PO DAILY 06/26/21 06/26/21 ferrous sulfate [FeroSul] 325 mg PO DAILY 06/26/21 06/26/21 sennosides-docusate sodium PO 06/26/21 [Stimulant Laxative Plus] Allergies Allergy/AdvReac Type Severity Reaction Status Date / Time No Known Allergies Allergy Verified 06/26/21 17:12 Review of Systems Review of Systems: CONSTITUTIONAL: Fever chills and myalgia. EYES: Denies visual changes, redness, or discharge. ENT: Denies rhinorrhea, congestion, sore throat, or otalgia. CARDIOVASCULAR: Denies chest pain, palpitations, or edema. RESPIRATORY: Shortness of breath GASTROINTESTINAL: Denies abdominal pain, nausea, vomiting, or diarrhea. GENITOURINARY: Denies dysuria or hematuria. SKIN: Denies rash or itching. MUSCULOSKELETAL: Denies back pain, joint pain, or myalgia. NEUROLOGIC: Denies headache, numbness, or weakness. All systems reviewed & are unremarkable except as noted in HPI and below PMFSH Past Medical History Medical History COPD (chronic obstructive pulmonary disease) Diabetes mellitus GERD (gastroesophageal reflux disease) Obstructive sleep apnea Palpitations Snoring Surgical History Surgical History Status post appendectomy 2002 Family History Family History Other Cancer Diabetes mellitus Social History Social History Smoking status: Never smoker Alcohol intake: current Exam Narrative: APPEARANCE: Well appearing, no pain, no distress, well-nourished. HEAD: normocephalic, atraumatic. EYES: PERRLA/EOMI, conjunctivae clear. NOSE: Normal no drainage THROAT: Pharynx clear, no exudate. NECK: Supple. No adenopathy, no masses. RESPIRATORY: Airway patent, respirations nonlabored. Wheezing in lower lung hdez CARDIOVASCULAR: Regular rate and rhythm without murmurs rubs or gallops. ABDOMINAL: Soft, nontender, nondistended, normal bowel sounds MUSCULOSKELETAL: Moves all extremities. Strength/ROM intact, No edema, No calf tenderness. NEURO: Alert. Cranial nerves II through XII intact. Grossly intact SKIN: Warm, dry. Normal Color Course Course Emergency Course: Patient does report a history of COPD. Patient felt improved after the breathing treatment. Patient's D-dimer was elevated. PE study was negative for pulmonary embolism. Patient did test positive for Covid. Influenza was negative. Patient was not started on paxlovid due to interactions with her current medications. Patient was encouraged to follow-up with her primary care physician and to seek antibody infusion. Patient was able to sit and stand/ambulate in the room and maintained a stable pulse ox of no less than 94%. Vital Signs Vital signs: Vital Signs Temperature 97.5 F L 11/25/21 01:45 Pulse Rate 75 11/25/21 01:45 Respiratory R
[2021-11-25] MEDS: ALBUTEROL SULFATE NEB 2.5 MG/0.5 ML INH 5 MG INHALATION (03:56)
== END 2021-11-25 05:17 | disposition home or self-care (01) ==
PROVIDERS: Emergency Provider Emergency Medicine; PCP Emergency Medicine
DX: U07.1 COVID-19 (principal); J44.9 Chronic obstructive pulmonary disease, unspecified; E11.9 Type 2 diabetes mellitus without complications; K21.9 Gastro-esophageal reflux disease without esophagitis; G47.33 Obstructive sleep apnea (adult) (pediatric); Z79.84 Long term (current) use of oral hypoglycemic drugs; R00.0 Tachycardia, unspecified; R94.31 Abnormal electrocardiogram [ECG] [EKG]
CPT/HCPCS: 36415; 71275; 80053; 85025; 85380; 87502; 93005; 94640; 99284; C9803; Q9967; U0003; U0005

== ENCOUNTER 2022-04-24 14:51 | Outpatient (CLI) | payer MEDICARE, MEDICAID, SELFPAY ==
[2022-04-24 15:09] LABS: Basophils Absolute Auto 0.1 K/mm3 (0.0-0.1); Basophils Percent Auto 0.6 % (0.2-1.2); Eosinophils Absolute Auto 0.1 K/mm3 (0-0.3); Eosinophils Percent Auto 0.8 % (0-4.4); Hematocrit 36.1 % (37.0-47.0); Hemoglobin 10.9 g/dL (12.0-15.0); Immature Granulocyte Absolute 0.02 K/mm3 (0.00-0.031); Immature Granulocyte Percent A 0.3 % (0-0.5); Lymphocytes Absolute Auto 2.16 K/mm3 (0.9-3.2); Lymphocytes Percent Auto 27.2 % (18.3-44.2); Mean Corpuscular HGB Conc 30.2 g/dl (32-36); Mean Corpuscular Hemoglobin 23.6 pg (26-34); Mean Corpuscular Volume 78.3 fl (80-100); Monocytes Absolute Auto 0.6 K/mm3 (0.1-0.6); Monocytes Percent Auto 7.7 % (2.6-8.5); Neutrophils Percent Auto 63.4 % (45.5-73.1); Platelet Count Result 427 k/mm3 (150-375); Red Blood Count 4.61 M/mm3 (4.2-5.4); Red Cell Distribution Width 14.6 % (11.5-14.5); White Blood Count 7.9 K/mm3 (4.5-10.0)
[2022-04-24 15:18] LABS: Hypochromasia 1+ (NORMAL); Ovalocytes 1+ (NORMAL); Platelet Estimate Increased (Adequate); Poikilocytosis 1+ (NORMAL)
[2022-04-24 16:19] LABS: Alanine Aminotransferase 14 U/L (6-35); Albumin Level 4.8 g/dL (3.5-5.1); Alkaline Phosphatase 75 U/L (38-126); Anion Gap 14 mmol/L (8-16); Aspartate Amino Transferase 21 U/L (14-36); Bilirubin,Total 0.1 mg/dL (0.2-1.3); Blood Urea Nitrogen 12 mg/dL (7-17); Calcium 9.8 mg/dL (8.4-10.2); Carbon Dioxide 25 mmol/L (22-30); Chloride 100 mmol/L (98-107); Estimated Glomerular Filt Rate > 60; Glucose 86 mg/dL (65-110); Iron 48 ug/dL (37-170); Lactate Dehydrogenase 155 U/L (120-246); Potassium 4.2 mmol/L (3.4-5.0); Sodium 139 mmol/L (137-145)
[2022-04-24 16:28] LABS: Percent Iron Saturation 11 % (20-50)
[2022-04-24 16:55] LABS: Ferritin 8.11 ng/mL (6.24-137)
[2022-04-24 17:25] LABS: Folic Acid 10.5 ng/mL (2.76->20)
[2022-04-29 17:51] LABS: Hematocrit 37.3 % (35.0-45.0); Hemoglobin 11.1 g/dL (11.7-15.5); MCH 23.4 pg (27.0-33.0); MCV 78.7 fL (80.0-100.0); RDW 14.6 % (11.0-15.0); Red Blood Cell Count 4.74 Mill/uL (3.80-5.10)
== END 2022-04-24 14:52 | disposition home or self-care (01) ==
LOC: ANHLAB 14:53
PROVIDERS: PCP Emergency Medicine; Visit Provider Internal Medicine Hematology & Oncology
DX: D64.9 Anemia, unspecified (principal)
CPT/HCPCS: 36415; 80053; 82607; 82728; 82746; 83021; 83540; 83550; 83615; 85025

== ENCOUNTER 2022-08-13 10:12 | Outpatient (CLI) | payer MEDICARE, MEDICAID, SELFPAY ==
[2022-08-13 10:27] LABS: Basophils Percent Auto 0.6 % (0.2-1.2); Eosinophils Absolute Auto 0.1 K/mm3 (0-0.3); Eosinophils Percent Auto 1.8 % (0-4.4); Hematocrit 37.2 % (37.0-47.0); Hemoglobin 11.7 g/dL (12.0-15.0); Immature Granulocyte Absolute 0.02 K/mm3 (0.00-0.031); Immature Granulocyte Percent A 0.3 % (0-0.5); Lymphocytes Percent Auto 23.7 % (18.3-44.2); Mean Corpuscular HGB Conc 31.5 g/dl (32-36); Mean Corpuscular Hemoglobin 24.7 pg (26-34); Mean Corpuscular Volume 78.6 fl (80-100); Mean Platelet Volume 9.7 fl (7.4-10.4); Monocytes Absolute Auto 0.6 K/mm3 (0.1-0.6); Monocytes Percent Auto 8.5 % (2.6-8.5); Neutrophils Absolute Auto 4.7 K/mm3 (1.3-6.7); Neutrophils Percent Auto 65.1 % (45.5-73.1); Platelet Count Result 386 k/mm3 (150-375); Red Blood Count 4.73 M/mm3 (4.2-5.4); Red Cell Distribution Width 14.2 % (11.5-14.5); White Blood Count 7.2 K/mm3 (4.5-10.0)
[2022-08-13 10:32] LABS: Ovalocytes 1+ (NORMAL); Platelet Estimate Adequate (Adequate); Poikilocytosis 1+ (NORMAL); Schistocytes None Seen (NORMAL)
[2022-08-13 10:53] LABS: Iron 63 ug/dL (37-170)
[2022-08-13 11:06] LABS: Percent Iron Saturation 15 % (20-50)
[2022-08-13 11:29] LABS: Ferritin 9.73 ng/mL (6.24-137)
[2022-08-13 12:01] LABS: Folic Acid 19.7 ng/mL (2.76->20)
== END 2022-08-13 10:13 | disposition home or self-care (01) ==
LOC: ANHLAB 10:14
PROVIDERS: PCP Emergency Medicine; Visit Provider Internal Medicine Hematology & Oncology
DX: D64.9 Anemia, unspecified (principal)
CPT/HCPCS: 36415; 82607; 82728; 82746; 83540; 83550; 85025

== ENCOUNTER → 2022-08-22 12:55 | Outpatient (CLI) | payer MEDICARE, MEDICAID, SELFPAY ==
--- NOTE | ~2022-08-22 | XR_ITS ---
XR chest 2V DATE: 08/22/2022 13:24 INDICATION: Wheezing. Nonsmoker. TECHNIQUE: 2 views COMPARISON: November 25, 2021 CT pulmonary scan FINDINGS: Normal heart size. No hilar or mediastinal enlargement. No pulmonary infiltrate or consolid ation, pleural effusion or pulmonary mass or congestion or pneumothorax. Degenerative spurring and minimal dextroscoliosis of the thoracic spine. IMPRESSION: No active cardiopulmonary disease Reviewed, dictated and finalized at location A. TIONSHIP ASSOCIATE
== END ==
PROVIDERS: PCP Emergency Medicine; Visit Provider Emergency Medicine
DX: R06.2 Wheezing (principal)
CPT/HCPCS: 71046

== ENCOUNTER 2023-01-20 10:31 | Outpatient (CLI) | payer MEDICARE, MEDICAID, SELFPAY ==
[2023-01-20 10:46] LABS: Basophils Percent Auto 0.3 % (0.2-1.2); Eosinophils Percent Auto 0.3 % (0-4.4); Hematocrit 35.7 % (37.0-47.0); Hemoglobin 11.1 g/dL (12.0-15.0); Immature Granulocyte Absolute 0.01 K/mm3 (0.00-0.031); Immature Granulocyte Percent A 0.1 % (0-0.5); Lymphocytes Absolute Auto 2.35 K/mm3 (0.9-3.2); Lymphocytes Percent Auto 31.4 % (18.3-44.2); Mean Corpuscular HGB Conc 31.1 g/dl (32-36); Mean Corpuscular Hemoglobin 24.7 pg (26-34); Mean Corpuscular Volume 79.3 fl (80-100); Mean Platelet Volume 9.7 fl (7.4-10.4); Monocytes Absolute Auto 0.6 K/mm3 (0.1-0.6); Monocytes Percent Auto 7.9 % (2.6-8.5); Neutrophils Absolute Auto 4.5 K/mm3 (1.3-6.7); Platelet Count Result 440 k/mm3 (150-375); White Blood Count 7.5 K/mm3 (4.5-10.0)
[2023-01-20 12:24] LABS: Iron 273 ug/dL (37-170)
[2023-01-20 12:35] LABS: Percent Iron Saturation 66 % (20-50)
[2023-01-20 13:00] LABS: Ferritin 8.63 ng/mL (6.24-137)
== END 2023-01-20 10:32 | disposition home or self-care (01) ==
LOC: ANHLAB 10:33
PROVIDERS: PCP Emergency Medicine; Visit Provider Internal Medicine Hematology & Oncology
DX: D64.9 Anemia, unspecified (principal)
CPT/HCPCS: 36415; 82728; 83540; 83550; 85025